=== PATIENT | male | born 1990 | race Caucasian/White ===

== ENCOUNTER 2017-06-18 09:29 | Emergency (ER) | payer SELFPAY ==
[2017-06-18] MEDS ORDERED: PROPOFOL 100 ML IV ONE (09:42)
[2017-06-18] MEDS ORDERED: NORMAL SALINE 1000 ML 1,000 ML IV PRN ×2 (09:48→09:49)
[2017-06-18] MEDS ORDERED: ROCURONIUM BROMIDE INJ 50 MG/5 ML VIAL IV ONE ×2 (09:49→14:40)
[2017-06-18] MEDS ORDERED: MORPHINE SULFATE 10 MG/ML INJ IV ONE ×3 (09:49→12:35)
[2017-06-18] MEDS ORDERED: PROPOFOL 100 ML IV PRN (09:49)
[2017-06-18 09:55] LABS: ABSOLUTE BASOPHILS # (AUTO) 0.1 10^3/uL (0.0-0.2); ABSOLUTE EOSINOPHILS # (AUTO) 0.4 10^3/uL (0.0-0.6); ABSOLUTE LYMPHOCYTES (AUTO) 3.2 10^3/uL (0.5-4.7); ABSOLUTE MONOCYTES (AUTO) 0.6 10^3/uL (0.1-1.4); ABSOLUTE NEUT (AUTO) 5.1 10^3/uL (1.7-8.2); BASOPHILS % (AUTO) 0.6 % (0-2); EOSINOPHILS % (AUTO) 3.9 % (0-6); HEMATOCRIT 46.1 % (37.9-51.0); HEMOGLOBIN 15.4 g/dL (13.5-17.0); HGB HCT DIFFERENCE 0.1; LYMPHOCYTES % (AUTO) 34.5 % (13-45); MEAN CORPUSCULAR HEMOGLOBIN 29.8 pg (27.0-33.4); MEAN CORPUSCULAR HGB CONC 33.5 g/dL (32.0-36.0); MEAN CORPUSCULAR VOLUME 89 fl (80-97); RED BLOOD COUNT 5.18 10^6/uL (4.35-5.55); RED CELL DISTRIBUTION WIDTH 13.3 % (11.5-14.0); VENOUS BLOOD BASE EXCESS -6.3 mmol/L; VENOUS BLOOD PH 7.26 (7.30-7.42); WHITE BLOOD COUNT 9.3 10^3/uL (4.0-10.5)
[2017-06-18 10:02] LABS: PROTHROMBIN TIME 13.7 SEC (11.4-15.4)
--- NOTE | 2017-06-18 10:22 | RADIOLOGY REPORT (SQ) ---
EXAM DESCRIPTION: CT HEAD WITHOUT COMPLETED DATE/TIME: 06/18/2017 10:09 am REASON FOR STUDY: found down sp arrest COMPARISON: None. TECHNIQUE: Axial images acquired through the brain without intravenous contrast. Images reviewed wi th bone, brain and subdural windows. Images stored on PACS. All CT scanners at this facility use dose modulation, iterative reconstruction, and/or weight based d osing when appropriate to reduce radiation dose to as low as reasonably achievable (ALARA). [facility]: Dose Right [facility]: CareDose [facility]: Dose Right [facility]: Teradose 4D [facility]: [employer] RADIATION DOSE: Up-to-date CT equipment and radiation dose reduction techniques were employed. CTDIv ol: 64.6 mGy. DLP: 1163 mGy-cm. mGy. LIMITATIONS: None. FINDINGS: VENTRICLES: Normal size and contour. CEREBRUM: No masses. No hemorrhage. No midline shift. Normal parker/white matter differentiation. N o evidence for acute infarction. CEREBELLUM: No masses. No hemorrhage. No alteration of density. No evidence for acute infarction. EXTRAAXIAL SPACES: No fluid collections. No masses. ORBITS AND GLOBE: No intra- or extraconal masses. Normal contour of globe without masses. CALVARIUM: No fracture. PARANASAL SINUSES: Mucosal thickening is identified in several of the ethmoidal air cells. SOFT TISSUES: No mass or hematoma. OTHER: No other significant finding. IMPRESSION: No significant intracranial abnormalities were identified. Other findings as noted abov e TECHNICAL DOCUMENTATION: JOB ID: [id number] Quality ID # [id number]: Final reports with documentation of one or more dose reduction techniques (e.g., Au tomated exposure control, adjustment of the mA and/or kV according to patient size, use of iterative reconstruction technique) 2010 [employer]- All Rights Reserved
[2017-06-18 10:24] LABS: ALANINE AMINOTRANSFERASE 72 U/L (21-72); ALBUMIN 4.3 g/dL (3.5-5.0); ALKALINE PHOSPHATASE 125 U/L (38-126); ASPARTATE AMINO TRANSFERASE 81 U/L (17-59); BILIRUBIN,DIRECT 0.4 mg/dL (0.0-0.4); BILIRUBIN,TOTAL 0.6 mg/dL (0.2-1.3); BLOOD UREA NITROGEN 7 mg/dL (7-20); CALCIUM 8.6 mg/dL (8.4-10.2); CARBON DIOXIDE 19 mmol/L (22-30); CHLORIDE 102 mmol/L (98-107); CREATINE KINASE 210 U/L (55-170); POTASSIUM 4.5 mmol/L (3.6-5.0); TOTAL PROTEIN 7.4 g/dL (6.3-8.2)
[2017-06-18 10:26] LABS: ALCOHOL < 10 mg/dL (NONE DETECTED)
--- NOTE | 2017-06-18 10:28 | RADIOLOGY REPORT (SQ) ---
EXAM DESCRIPTION: CT CERVICAL SPINE WITHOUT COMPLETED DATE/TIME: 06/18/2017 10:16 am REASON FOR STUDY: found down sp arrest COMPARISON: None. TECHNIQUE: Axial images acquired through the cervical spine without intravenous contrast. Images re viewed with lung, soft tissue and bone windows. Reconstructed coronal and sagittal MPR images review ed. Images stored on PACS. All CT scanners at this facility use dose modulation, iterative reconstruction, and/or weight based d osing when appropriate to reduce radiation dose to as low as reasonably achievable (ALARA). [facility]: Dose Right [facility]: CareDose [facility]: Dose Right [facility]: Teradose 4D [facility]: Smart [employer] RADIATION DOSE: Up-to-date CT equipment and radiation dose reduction techniques were employed. CTDIv ol: 18.9 mGy. DLP: 435 mGy-cm. mGy. LIMITATIONS: None. FINDINGS: ALIGNMENT: Anatomic. MINERALIZATION: Normal. VERTEBRAL BODIES: No fractures or dislocation. DISCS: No significant disc disease. FACETS, LATERAL MASSES, POSTERIOR ELEMENTS: No fractures. No dislocation. No acute findings. HARDWARE: Endotracheal tube is identified in the trachea. NG tube is coiled in the pharyngeal region and extends into the esophagus. VISUALIZED RIBS: No fractures. LUNG APICES AND SOFT TISSUES: Airspace densities are identified in the apical regions bilaterally. OTHER: No other significant finding. IMPRESSION: NO ACUTE OR SIGNIFICANT FINDINGS IN THE CERVICAL SPINE. Other findings as noted above TECHNICAL DOCUMENTATION: JOB ID: [id number] Quality ID # [id number]: Final reports with documentation of one or more dose reduction techniques (e.g., Au tomated exposure control, adjustment of the mA and/or kV according to patient size, use of iterative reconstruction technique) 2010 [employer]- All Rights Reserved
--- NOTE | 2017-06-18 10:49 | RADIOLOGY REPORT (SQ) ---
EXAM DESCRIPTION: CHEST SINGLE VIEW COMPLETED DATE/TIME: 06/18/2017 10:26 am REASON FOR STUDY: sp arrest COMPARISON: None. EXAM PARAMETERS: NUMBER OF VIEWS: One view. TECHNIQUE: Single frontal radiographic view of the chest acquired. RADIATION DOSE: NA LIMITATIONS: None. FINDINGS: LUNGS AND PLEURA: Diffuse ill-defined airspace densities are identified most consistent wi th pulmonary edema. MEDIASTINUM AND HILAR STRUCTURES: No masses. Contour normal. HEART AND VASCULAR STRUCTURES: Heart normal in size. Normal vasculature. BONES: No acute findings. HARDWARE: Endotracheal tube is seen with its tip the level of the thoracic inlet. NG tube is seen wi th its tip at the level of the mid esophagus which should be advanced. OTHER: No other significant finding. IMPRESSION: Diffuse ill-defined airspace densities most consistent with pulmonary edema. NG tube wi th its tip at the level of the midesophagus which should be advanced. Other findings as noted above TECHNICAL DOCUMENTATION: JOB ID: [id number]
[2017-06-18 11:15] LABS: APPEARANCE,URINE SLIGHTLY-CLOUDY; BILIRUBIN,URINE NEGATIVE (NEGATIVE); GLUCOSE, URINE >=500 mg/dL (NEGATIVE); KETONES,URINE NEGATIVE (NEGATIVE); LEUKOCYTE ESTERASE,URINE NEGATIVE (NEGATIVE); NITRITE,URINE NEGATIVE (NEGATIVE); PROTEIN,URINE 100 mg/dL (NEGATIVE); URINE SPECIFIC GRAVITY 1.008; UROBILINOGEN,URINE NEGATIVE mg/dL (<2.0)
[2017-06-18] MEDS ORDERED: FUROSEMIDE INJ/PF 40 MG/4 ML SDV IV ONE ×2 (11:17→13:30)
[2017-06-18 11:19] LABS: ARTERIAL BLOOD BASE EXCESS -7.3 mmol/L; ARTERIAL BLOOD O2 SATURATION 91.8 % (94-98)
[2017-06-18 11:23] LABS: GLUCOSE 297 mg/dL (75-110); SODIUM 144.7 mmol/L (137-145)
[2017-06-18] MEDS ORDERED: VECURONIUM BROMIDE INJ 10 MG VIAL IV ONE (11:23)
[2017-06-18 11:26] LABS: ANION GAP 24 (5-19)
--- NOTE | 2017-06-18 11:33 | ER Document Report ---
ED General <KARINADAILY - Last Filed: 06/18/17 11:35> - HPI Patient complains to provider of: Status post cardiac and respiratory arrest <STEPHANIE DUNNE - Last Filed: 06/18/17 14:45> - General Stated Complaint: POST ARREST Time Seen by Provider: 06/18/17 09:46 - HPI Notes: Patient has a history of drug abuse coming in status post cardiac arrest patient was last seen around 9:00 found down at 915 EMS reports [facility] on arrival CPR initiated for approximately 6 minutes with 1 epinephrine 1 bicarb given return spontaneous circulation. Carl tube was established for airway protection and ventilation patient otherwise was transported to the ER for further evaluation. Much of the HPI is limited due to patient's serious condition. EMS did also administer 4 mg of Narcan. (STEPHANIE DUNNE) Past Medical History - Social History Smoking Status: Unknown if Ever Smoked Family History: Reviewed & Not Pertinent <STEPHANIE DUNNE - Last Filed: 06/18/17 14:45> Review of Systems - Review of Systems -: Yes ROS unobtainable due to patient's medical condition - Unstable vital signs <STEPHANIE DUNNE - Last Filed: 06/18/17 14:45> Physical Exam - Vital signs Interpretation: Hypertensive, Tachycardic - General General appearance: Other - Unresponsive - HEENT Head: Normocephalic, Atraumatic Eyes: Normal Pupils: Dilated - Dilated fixed pupils the 8 mm each - Respiratory Respiratory status: Respiratory distress Chest status: Nontender Breath sounds: Normal Chest palpation: Normal - Cardiovascular Rhythm: Regular, Tachycardia Heart sounds: Normal auscultation Murmur: No - Abdominal Inspection: Normal Distension: No distension Bowel sounds: Normal Tenderness: Nontender Organomegaly: No organomegaly - Genitourinary Inspection: Normal Scrotum: Normal - Back Back: Normal, Nontender - Extremities General upper extremity: Normal inspection, Normal color. No: Edema General lower extremity: Normal inspection, Normal color. No: Edema - Neurological Veteran Coma Scale Eye Opening: None Veteran Coma Scale Verbal: None Veteran Coma Scale Motor: None Akbar Coma Scale Total: 3 - Skin Skin Temperature: Warm Skin Moisture: Dry Skin Color: Normal <STEPHANIE DUNNE - Last Filed: 06/18/17 14:45> - Vital signs Vitals: Resp BP Pulse Ox 18 214/140 H 100 06/18/17 09:33 06/18/17 09:33 06/18/17 09:33 Course - Laboratory Result Diagrams: 06/18/17 09:40 06/18/17 09:40 <DAILY COLLINS - Last Filed: 06/18/17 11:35> - Laboratory Result Diagrams: 06/18/17 09:40 06/18/17 09:40 <STEPHANIE DUNNE - Last Filed: 06/18/17 14:45> - Re-evaluation Re-evalutation: 06/18/17 13:33 Patient currently to be transported. Patient's ABG performed by the transport team does seem to be getting worse however at this time we have had her admitted attorneys consulted to change ventilator settings patient still remains having episodes of hypoxemic continues to back the patient at this time will continue hypoxia. Pulmonology team does not have any further input at this time. Patient has had bilateral lung sounds we are continuing to try to diurese to help out with the patient's pulmonary edema however at this time although the patient does remain hypoxic and we are having to use a BVM we have maxed or capabilities and will continue with transport 06/18/17 14:40 Patient coming in status post cardiac respiratory arrest after more likely a drug overdose. Upon arrival patient was tachycardic and hypertensive EMS did give the patient 6 of Versed just prior to arrival etiology as of the patient gave Narcan possibly due to ingestion of other stimulants causing vital sign abnormalities. Carl tube was exchanged for ET tube. Just prior to extend the ET tube patient did start having some discordant posturing patient still on ventilator workup was begun. Because of tachycardia and patient's initial appearance looking dehydrated patient was given IV fluids 2 L initially another 2 L was added this patient did have minimal response with a heart rate. At some time patient started having peak frothy sputum from the ET tube. This was suction this became very copious with total volume approximately 500 cc possible 200 cc lost on trucks. Oxygenation also became difficult multiple ventilator changes were performed with minimal results I did consult our admitted attorneys who lidocaine bedside and performed further ventilator changes however patient continued to have difficulty in oxygenation. ABG confirmed poor oxygenation low PO2 of 100%. Repeat chest x-ray showed worsening of pulmonary edema. Patient then was given Lasix with good urinary output patient' s vital signs did improve heart rate and blood pressure with small boluses of propofol this was repeated multiple times along with small aliquots of morphine concerned patient may be going through active withdrawals as the patient did receive Narcan. Unknown about alcohol intake. No other critical pathology was C discussed with Dr. Kitchen intensive this at [facility] agrees to set the patient. Please see the above note first time at transport patient was hypoxemic difficulty ventilating just prior to leaving the ER patient's SPO2 through bag valve mask with a peak valve was sustained at 88- 89% 06/18/17 14:45 (STEPHANIE DUNNE) - Vital Signs Vital signs: Temp Pulse Resp BP Pulse Ox 97.1 F 19 191/147 H 90 L 06/18/17 12:26 06/18/17 11:58 06/18/17 12:26 06/18/17 12:26 - Laboratory Laboratory results interpreted by me: 06/18/17 06/18/17 06/18/17 09:40 09:40 09:40 Carbonic Acid ABG pH ABG pCO2 ABG pO2 ABG Total CO2 ABG O2 Saturation VBG pH 7.26 L Carbon Dioxide 19 L Anion Gap 24 H Glucose 297 H Lactic Acid 6.1 H AST 81 H Creatine Kinase 210 H Urine Protein Urine Glucose (UA) Salicylates < 1.0 L Acetaminophen < 10 L 06/18/17 06/18/17 09:56 10:36 Carbonic Acid 1.48 H ABG pH 7.24 L ABG pCO2 49.2 H ABG pO2 72.9 L ABG Total CO2 21.9 L ABG O2 Saturation 91.8 L VBG pH Carbon Dioxide Anion Gap Glucose Lactic Acid AST Creatine Kinase Urine Protein 100 H Urine Glucose (UA) >=500 H Salicylates Acetaminophen Procedures - Intubation Orotracheal Time of Intubation: 09:30 Airway evaluation: Normal anatomy Mallampati Classification: Class 3 Medications: Succinylcholine Intubation method: Orotracheal Blade type: Manish Blade size: 3 Equipment used: Glidescope ETT size: 8.0 ETT secured at: Teeth ETT secured at (cm): 24 Breath Sounds after Intubation: Equal End tidal CO2 confirmed: Yes Post Intubation Xray: Yes Intubation Complications: No complications <DAILY COLLINS - Last Filed: 06/18/17 11:35> Critical Care Note <DAILY COLLINS - Last Filed: 06/18/17 11:35> - Critical Care Note Total time excluding time spent on procedures (mins): 90 <STEPHANIE DUNNE - Last Filed: 06/18/17 14:45> - Critical Care Note Comments: Multiple evaluation for patient with pulmonary edema status post cardiac arrest from drug overdose. (STEPHANIE DUNNE) Discharge <DAILY COLLINS - Last Filed: 06/18/17 11:35> <STEPHANIE DUNNE - Last Filed: 06/18/17 14:45> - Discharge Clinical Impression: History of cardiac arrest Respiratory failure Qualifiers: Chronicity: acute Respiratory failure complication: hypoxia Qualified Code(s): J96.01 - Acute respiratory failure with hypoxia Pulmonary edema Qualifiers: Chronicity: acute Qualified Code(s): J81.0 - Acute pulmonary edema Condition: Good Disposition: HOME, SELF-CARE
[2017-06-18] MEDS ORDERED: NITROGLYCERIN/D5W 250 ML IV PRN (11:54)
[2017-06-18 11:58] LABS: URINE BARBITURATES SCREEN NEGATIVE; URINE METHADONE SCREEN NEGATIVE; URINE OPIATES LOW UNCONFIRMED POSITIVE; URINE PHENCYCLIDINE SCREEN NEGATIVE
--- NOTE | 2017-06-18 12:41 | RADIOLOGY REPORT (SQ) ---
EXAM DESCRIPTION: CHEST SINGLE VIEW COMPLETED DATE/TIME: 06/18/2017 12:20 pm REASON FOR STUDY: s/p ng tube eval edeam COMPARISON: 06/18/2017 EXAM PARAMETERS: NUMBER OF VIEWS: One view. TECHNIQUE: Single frontal radiographic view of the chest acquired. RADIATION DOSE: NA LIMITATIONS: None. FINDINGS: LUNGS AND PLEURA: Fairly diffuse airspace densities are again identified primarily in a pe rihilar and lower lobe distribution most consistent with pulmonary edema. MEDIASTINUM AND HILAR STRUCTURES: No masses. Contour normal. HEART AND VASCULAR STRUCTURES: Heart normal in size. Normal vasculature. BONES: No acute findings. HARDWARE: Endotracheal tube is again identified with its tip the level of the thoracic inlet. NG tub e is seen in course to the abdomen. The left upper quadrant is partially obscured due to overlying m onitoring devices however the tip appears to be in the left upper quadrant presumably in the proximal stomach. OTHER: No other significant finding. IMPRESSION: Fairly diffuse airspace densities are again identified as noted above most consistent wi th pulmonary edema. NG tube is seen in course to the abdomen with the tip appearing to be in the lef t upper quadrant presumably in the proximal stomach. Other findings as noted above TECHNICAL DOCUMENTATION: JOB ID: [id number]
[2017-06-18 14:43] VITALS: BP 104/75
--- NOTE | 2017-06-20 06:04 | EKG REPORT ---
SEVERITY:- BORDERLINE ECG - SINUS TACHYCARDIA VENTRICULAR PREMATURE COMPLEX LEFT AXIS DEVIATION : Confirmed by: Radha Zhao MD 20-Jun-2017 06:03:29
== END 2017-06-18 13:35 | disposition short-term general hospital (02) ==
LOC: ER 09:29
PROC: 0BH17EZ Insertion of Endotracheal Airway into Trachea, Via Natural or Artificial Opening (ICD-10-PCS; principal; 2017-06-18)
DX: J96.01 Acute respiratory failure with hypoxia (principal); J81.0 Acute pulmonary edema; I46.8 Cardiac arrest due to other underlying condition; T50.901A Poisoning by unspecified drugs, medicaments and biological substances, accidental (unintentional), initial encounter
CPT/HCPCS: 93005; 96376; 99291; 99292; 96361; 96374; 96375; 36415; 87040; 87086; 80307 ×4; 82803 ×2; 82550; 85025; 85610; 80053; 81001; 84484; 83605; 71010; 70450; 72125; 93010; 31500; J3490 ×3; J1940; J2270